=== PATIENT | female | born 1955 | race Caucasian/White ===

== ENCOUNTER 2023-08-26 16:07 | Emergency (ER) | payer SELFPAY ==
[2023-08-26] MEDS ORDERED: Tetracaine HCl/PF 0.5% 4 ML Bottle EYEBOTH ONE (16:10)
== END 2023-08-26 16:46 | disposition home or self-care (01) ==
LOC: MW.ED 16:07
DX: S05.91XA Unspecified injury of right eye and orbit, initial encounter (principal); I10 Essential (primary) hypertension; E10.9 Type 1 diabetes mellitus without complications; W50.1XXA Accidental kick by another person, initial encounter
CPT/HCPCS: 99283